=== PATIENT | female | born 1960 | race Caucasian/White ===

== ENCOUNTER 2018-03-21 18:17 | Outpatient (REF) | payer OTHER, SELFPAY ==
[2018-03-21 22:26] LABS: TSH (W/Ref FT4) 3.84 uIU/mL (0.358-3.74)
[2018-03-21 22:54] LABS: FREE T4 1.17 ng/dL (0.76-1.46)
== END 2018-03-21 18:37 ==
LOC: NCHCN 18:17
PROVIDERS: PCP Nurse Practitioner; Visit Provider Nurse Practitioner
DX: E03.9 Hypothyroidism, unspecified (principal)
CPT/HCPCS: 84439; 84443

== ENCOUNTER 2018-03-29 01:06 | Outpatient (CLI) | payer OTHER, SELFPAY ==
--- NOTE | 2018-03-29 14:13 | DI.RAD_ITS ---
SYMPTOMS/DIAGNOSIS: HIP PAIN, M25.551 LUMBAR SPINE: The spine is partially obscured due to a large quantity of stool seen throughout the colon. There is mild narrowing of the L2-3 disc and small endplate osteophytes, which project anteriorly. There is also mild narrowing of the L4-5 disc. Facet degenerative changes are seen, which are mild, in the lower lumbar spine. A sacral spinal stimulator is seen. IMPRESSION: Mild to moderate degenerative disc changes at L2-3 and L4-5. Large quantity of stool is noted. PELVIS AND LEFT HIP: A sacral stimulator device is seen on the right side. The hip joint spaces are well maintained. There are no visible degenerative changes. There is a large quantity of stool. IMPRESSION: Negative pelvis and right hip.
== END 2018-03-29 01:26 ==
PROVIDERS: PCP Nurse Practitioner; Visit Provider Nurse Practitioner
DX: M25.552 Pain in left hip (principal); M51.36 Other intervertebral disc degeneration, lumbar region; K59.00 Constipation, unspecified; Z96.9 Presence of functional implant, unspecified
CPT/HCPCS: 72110; 73502

== ENCOUNTER 2018-06-09 07:49 | Outpatient (CLI) | payer OTHER, SELFPAY ==
[2018-06-09 11:47] LABS: Cholesterol 126 mg/dL (50-200); Glucose 89 mg/dL (70-100); HDL Cholesterol 39 mg/dL (40-60); LDL CHOLESTEROL 48 mg/dL (<100); Triglyceride 141 mg/dL (30-150)
== END 2018-06-09 08:09 ==
PROVIDERS: PCP Nurse Practitioner; Visit Provider Nurse Practitioner
DX: Z00.00 Encounter for general adult medical examination without abnormal findings (principal); Z13.220 Encounter for screening for lipoid disorders; Z13.1 Encounter for screening for diabetes mellitus
CPT/HCPCS: 36415; 80061; 82947; 83721

== ENCOUNTER 2018-06-14 00:24 | Outpatient (CLI) | payer OTHER, SELFPAY ==
--- NOTE | 2018-06-14 13:00 | DI.US_ITS ---
SYMPTOMS/DIAGNOSIS: RIGHT GROIN PAIN, R10.31, RIGHT LOWER QUADRANT PAIN X 1 MO, TUGGING FEELING AT NIGHT WHEN LYING DOWN, S/P APPENDECTOMY, S/P MYOMECTOMY, H/O BREAST CA PELVIC ULTRASOUND: Transabdominal and transvaginal examination was performed. The uterus measures 6 cm long x 2.2 cm AP x 3.4 cm transverse. The endometrial stripe is within normal limits at 0.1 cm. No myometrial mass is present. The ovaries are visualized. The right ovary measures 2.1 x 1.1 x 1.3 cm, the left ovary measures 1.7 x 1.1 x 1.0 cm. The ovaries are unremarkable. No free pelvic fluid or hydronephrosis is identified. IMPRESSION: Normal pelvic ultrasound.
== END 2018-06-14 00:44 ==
PROVIDERS: PCP Nurse Practitioner; Visit Provider Nurse Practitioner
DX: R10.31 Right lower quadrant pain (principal); Z85.3 Personal history of malignant neoplasm of breast; Z90.89 Acquired absence of other organs
CPT/HCPCS: 76830; 76856

== ENCOUNTER 2018-07-17 11:34 | Emergency (ER) | payer OTHER, SELFPAY ==
[2018-07-17 11:48] VITALS: BP 103/64; PULSE 90; RESP 14; TEMP 36.7; O2SAT 100
--- NOTE | 2018-07-17 11:54 | DI.RAD_ITS ---
SYMPTOMS/DIAGNOSIS: FALL WHILE SKIING, RT HIP PAIN, AMBULATES WELL RIGHT HIP AND PELVIS: Five views were obtained. No fracture is seen. Note is made of sacral spinal stimulator in place.
--- NOTE | 2018-07-17 11:56 | ED.GENADUL_ITS ---
Discharge Plan Disposition Patient Disposition: HOME Condition: Good Discharge Details Chief Complaint: Orthopedic Clinical Impression: Acute pain of right hip Primary Care Provider: Taylor Warren ED Provider: Thomas Olguin Home Meds and New Rx's Prescriptions: New lidocaine [Lidoderm] 1 PATCH patch 1 patch Topical Q24H Qty: 4 RF: 0 No Action trazodone 100 MG tablet 100 mg PO HS RF: 0 levothyroxine [Synthroid] 125 MCG tablet 125 mcg PO DAILY RF: 0 buspirone 15 MG tablet 30 mg PO BID RF: 0 duloxetine [Cymbalta] 60 MG capsule,delayed release(DR/EC) 120 mg PO DAILY RF: 0 anastrozole 1 mg Tablet 1 mg PO DAILY RF: 0 Discharge Instructions Instructions: Hip Pain (ED) Additional Instructions: The x-rays show no evidence of fracture, and I suspect you have suffered a contusion and sprain to your hip. Please continue to take Tylenol, ibuprofen, and the Lidoderm patches as needed for pain. Please use ice every 2-3 hours. If you notice any worsening of your symptoms, or any new symptoms such as vomiting, diarrhea, fever, chills, shortness of breath, chest pain, numbness, weakness, or fainting , please return immediately to the emergency department for reevaluation. Please follow up with your primary care provider as soon as possible for reassessment and reevaluation. As always, it was a pleasure participating in your medical care today. Referrals: Taylor Warren [Primary Care Provider] - Medical Decision Making This is a pleasant 57-year-old female with a past medical history of breast cancer who is not on any blood thinners who presents today for evaluation of right hip pain. She fell while skiing yesterday and landed on her right hip. She skied throughout the rest of the day without any pain or complication. She did notice today that her right hip was slightly sore when she was climbing up and down stairs, but had no significant pain with walking ambulation or movement otherwise. She has taken naproxen this is improved her symptoms. She denies any numbness or tingling. Physical exam shows no concerning signs for fracture or significant abnormality. Questionable mild contusion or ligamentous sprain. Patient is requesting x-ray and will get an x-ray of the hips. We will Place Lidoderm patch. I feel the patient can most likely be discharged home with close follow-up with her PCP if x-ray imaging is benign. 1:17 PM Patient's x-ray results have returned with no evidence of acute fracture. Patient is ambulate in well and pain is well controlled. Patient will be discharged home with close follow-up with PCP per I have extensively reviewed the treatment plan and discharge instructions with the patient and their family. I have addressed all patient concerns at this time. The patient and family was made aware of what symptoms to monitor for that would warrant a return to the emergency department. Discussed the plan with the patient and family, they demonstrate verbal understanding and agreement with our assessment and plan at this time. CLINICAL HISTORY: 57 years old, female; Pain; Hip pain; Right hip; Patient HX: Neurostimulator placed years ago. ; Additional info: Fall skiing yesterday, pain right hip, ambulates well. TECHNIQUE: Imaging protocol: XR Right hip with pelvis when performed, 2 or 3 views COMPARISON: CR XR hip RT complete AP pelvis 03/29/2018 2:24 PM FINDINGS: Bones/joints: Normal. No acute fracture. There is no evidence of malalignment or dislocation. Soft tissues: Neurostimulator overlies the right iliac crest IMPRESSION: No acute findings. Dictated and Authenticated by: Barber Haney MD. HPI General Date/Time Provider Initiated Documentation: 07/17/18 11:44 . HPI Narrative: This is a pleasant 57-year-old female with a past medical history of breast cancer, who presents today for evaluation of right hip pain. The patient was skiing yesterday and fell and landed on her right hip. She had no loss of consciousness and denies any other significant trauma. She got up and Skiing for the rest of the day with no significant complication or pain however today she noticed a mild soreness in her right hip today. Pain was worse with walking up or down stairs, but not painful with just regular ambulation or movement. She denies any numbness or tingling. No radiation of the pain to the knee, pelvis or abdomen. She denies any other complaints. She has taken naproxen this is slightly improved her symptoms. She denies any other modifying factors. She denies any previous orthopedic injuries. Related Data Home Medications Medication Instructions Recorded Confirmed buspirone 30 mg PO BID 09/24/13 07/17/18 duloxetine [Cymbalta] 120 mg PO DAILY 09/24/13 07/17/18 levothyroxine [Synthroid] 125 mcg PO DAILY 09/24/13 07/17/18 trazodone 100 mg PO HS 09/24/13 07/17/18 anastrozole 1 mg PO DAILY 07/17/18 07/17/18 lidocaine [Lidoderm] 1 patch TOPICAL Q24H #4 patch 07/17/18 Previous Rx's Medication Instructions Recorded lidocaine [Lidoderm] 1 patch TOPICAL Q24H #4 patch 07/17/18 Allergies Allergy/AdvReac Type Severity Reaction Status Date / Time azithromycin [From Zithromax] Allergy Mild Skin Rash Unverified 07/17/18 12:37 cephalexin monohydrate Allergy Mild Skin Rash Unverified 07/17/18 12:37 [From Keflex] Review of Systems Review of Systems All systems reviewed & are unremarkable except as noted in HPI and below PFSH Social History Smoking/Tobacco Use Status: Former Tobacco Use Drug use: Never Do you feel safe at home: Yes Do you feel safe in your relationship?: Yes Exam Narrative Exam Narrative: 1.Const: Well-nourished, Well-developed, appearing stated age 2.Eyes: PERRL, no conjunctival injection, and symmetrical lids. 3.ENT: Atraumatic external nose and ears. Moist MM. Neck: Symmetric, trachea midline, No thyromegaly. 4.CVS: +S1/S2, No murmurs or gallops. Peripheral pulses 2+ and equal in all extremities. Brisk capillary refill in all extremities. 5.RESP: Unlabored respiratory effort. Clear to auscultation bilaterally. No wheezes rales or rhonchi 6.GI: Soft, Nontender/Nondistended, No hepatosplenomegaly. No guarding or rebound. 7.MSK: Normocephalic/Atraumatic, Extremities w/o deformity or ttp No cyanosis or clubbing, Normal movement of all extremities. Movements of the hip in all directions elicits no significant pain with internal or external rotation as well as flexion extension abduction and abduction. No crepitus. Minimal tenderness on palpation of the greater trochanter. No tenderness of the pubic symphysis. Pelvis is stable to lateral and posterior compression. No signs of other significant abnormality. No evidence of bruising or significant trauma. 8.Skin: Warm, Dry. No rashes or lesions. 9.Neuro: area safety manager II-XII grossly intact. Sensation grossly intact, no focal neurologic deficits. 10.Psych: (AAO) x3. Appropriate mood and affect
[2018-07-17] MEDS: Lidocaine 5% Patch 1 PATCH TP (12:00)
--- NOTE | 2018-07-17 13:11 | DI.VRAD_ITS ---
EXAM: XR Right Hip with Pelvis when Performed, 2 or 3 Views EXAM DATE/TIME: 07/17/2018 11:55 AM CLINICAL HISTORY: 57 years old, female; Pain; Hip pain; Right hip; Patient HX: Neurostimulator placed years ago. ; Additional info: Fall skiing yesterday, pain right hip, ambulates well. TECHNIQUE: Imaging protocol: XR Right hip with pelvis when performed, 2 or 3 views COMPARISON: CR XR hip RT complete AP pelvis 03/29/2018 2:24 PM FINDINGS: Bones/joints: Normal. No acute fracture. There is no evidence of malalignment or dislocation. Soft tissues: Neurostimulator overlies the right iliac crest IMPRESSION: No acute findings. Dictated and Authenticated by: Barber Haney MD. Ordering:OMAR Guzman MD
== END 2018-07-17 13:24 | disposition home or self-care (01) ==
PROVIDERS: Emergency Provider Student in an Organized Health Care Education/Training Program; PCP Family Medicine
DX: M25.551 Pain in right hip (principal)
CPT/HCPCS: 99283; 73502

== ENCOUNTER 2018-08-25 12:17 | Outpatient (REF) | payer OTHER, SELFPAY ==
[2018-08-25 22:27] LABS: CREATININE 0.82 mg/dL (0.55-1.02)
== END 2018-08-25 12:37 ==
LOC: NCHCN 12:17
PROVIDERS: PCP Family Medicine; Visit Provider Family Medicine
DX: R19.00 Intra-abdominal and pelvic swelling, mass and lump, unspecified site (principal)
CPT/HCPCS: 82565

== ENCOUNTER 2018-09-01 01:33 | Outpatient (CLI) | payer OTHER, SELFPAY ==
[2018-09-01] MEDS: Omnipaque 350 MG/ML 100 ML BTL IJ (10:43)
--- NOTE | 2018-09-01 10:44 | DI.CT_ITS ---
SYMPTOMS/DIAGNOSIS: ABD MASS, R19.[address]: CT examination of the abdomen and pelvis was performed with a bolus infusion of 100 cc's of Omnipaque 350 and ingestion of dilute barium. Note is made of a sacral neural pacer wire with subcutaneous placement of the pacer. Images obtained through the lung bases are unremarkable. Liver, spleen and pancreas appear normal. Gallbladder and bile ducts are CT normal. Adrenals and kidneys are unremarkable. No evidence of urinary tract obstruction or calcification. Abdominal aorta is of normal diameter and major branches are unremarkable in appearance. There is a tiny fat containing ventral hernia in the left lower quadrant measuring up to about 2 cm in diameter. No additional abdominal wall hernia seen. No abdominal wall mass identified. No abdominal or pelvic adenopathy seen. Appendix is not specifically visualized but there is no evidence of appendicitis or diverticulitis. No evidence of bowel obstruction. Note is made of dilatation and probable wall thickening of the duodenum and perhaps portions of the proximal jejunum. Question mild gastric antral wall thickening noted as well. CONCLUSION: 1. Question antral gastritis and duodenitis vs enteritis. Please correlate clinically and endoscopy may be obtained if clinically appropriate. 2. 2 cm in diameter fat containing left lower quadrant ventral hernia seen at the lateral border of the rectus muscle. No bowel involvement.
== END 2018-09-01 01:53 ==
PROVIDERS: PCP Family Medicine; Visit Provider Family Medicine
DX: R19.00 Intra-abdominal and pelvic swelling, mass and lump, unspecified site (principal); K43.9 Ventral hernia without obstruction or gangrene; K59.8 Other specified functional intestinal disorders
CPT/HCPCS: 74177; J3490

== ENCOUNTER 2019-01-23 16:18 | Outpatient (CLI) | payer OTHER, SELFPAY ==
--- NOTE | 2019-01-23 16:18 | DI.RAD_ITS ---
EXAM: XR SACRUM COCCYX INDICATION: COCCYDYNIA M53.3 HX BREAST CANCER. COMPARISON: XR FOOT RT COMPLETE from 01/23/2019 TECHNIQUE: 2D digital imaging was performed. FINDINGS: Three views were obtained. There is apparent this sacral is simulator located posteriorly the tip wh ich lies at the 3rd to 4th sacral segment on right. Mild degenerative changes of the SI joints noted . No other significant bony seen. Three views of the foot were obtained and show slight degenerative changes of joints of the midfoot a nd IP joints. note is made of a prominent os tibialis externum. This appears partially fused to the navicular, correlation requested regarding the site of the patient's foot pain. IMPRESSION:
== END 2019-01-23 16:38 ==
PROVIDERS: PCP Family Medicine; Visit Provider Family Medicine
DX: M53.3 Sacrococcygeal disorders, not elsewhere classified (principal); M19.071 Primary osteoarthritis, right ankle and foot; Z85.3 Personal history of malignant neoplasm of breast
CPT/HCPCS: 72220; 73630

== ENCOUNTER 2019-03-28 10:16 | Outpatient (REF) | payer OTHER, SELFPAY ==
[2019-03-28 20:00] LABS: TSH (W/Ref FT4) 5.72 uIU/mL (0.36-3.74)
[2019-03-28 20:17] LABS: FREE T4 1.12 ng/dL (0.76-1.46)
== END 2019-03-28 10:36 ==
LOC: NCHCN 10:16
PROVIDERS: PCP Family Medicine; Visit Provider Family Medicine
DX: E03.9 Hypothyroidism, unspecified (principal)
CPT/HCPCS: 84439; 84443

== ENCOUNTER 2019-05-11 13:14 | Outpatient (REF) | payer OTHER, SELFPAY ==
--- NOTE | 2019-05-11 11:30 | PAPFT_PTH ---
PATIENT: Nisreen Tafoya LOC: [facility]#:[id number] AGE/SX: 58/F ROOM: RE05/11/[address]: Kath Eden : 1960 BED: DIS: 05/11/2019 SPEC #: [id number] RECD: 05/11/19 18:14 STATUS: SIMIN REQ #: [id number] LÓPEZ: 05/11/19 11:[address]: Kath Eden DEPT: [facility] Cytology RECD BY: Sunshine Romero ENTERED: 05/11/19 18:15 SP TYPE: PAPFT OTHR DR: Taylor Warren Tissues: 1 - CX/ENDOCX FOR PAP SMEARS Procedures: PAP THIN PREP/UVM Screening HPV DNA PROBE Comments: [id number]
== END 2019-05-11 13:34 ==
LOC: NCHCN 13:14
PROVIDERS: PCP Family Medicine; Visit Provider Family Medicine
DX: Z00.00 Encounter for general adult medical examination without abnormal findings (principal); Z12.4 Encounter for screening for malignant neoplasm of cervix; Z11.51 Encounter for screening for human papillomavirus (HPV)
CPT/HCPCS: 88142; 87624

== ENCOUNTER 2019-07-21 12:49 | Outpatient (REF) | payer OTHER, SELFPAY | END 2019-07-21 13:09 | LOC: NCHCN 12:49 | PROVIDERS: PCP Family Medicine; Visit Provider Family Medicine | DX: E03.9 Hypothyroidism, unspecified (principal) | CPT/HCPCS: 84443 ==

== ENCOUNTER 2019-12-27 01:17 | Outpatient (CLI) | payer OTHER, SELFPAY ==
--- NOTE | 2019-12-27 | DI.US_ITS ---
EXAM: US SOFT TISSUE EXTREMITY CLINICAL HISTORY: PAIN BETWEEN 2ND,3RD METATARSAL/PROX PHALANGES, ? MORTONS NEUROMA. TECHNIQUE: Ultrasound was performed using standard protocol. COMPARISON: No exams were available for comparison FINDINGS: Sonographic assessment utilizing grayscale and color Doppler imaging was performed and targeted to th e area of clinical concern. No foreign body, mass or fluid collection was visualized sonographically. IMPRESSION: Negative ultrasound of the right foot. No visible mass. DATA REPOSITORY:
== END 2019-12-27 01:37 ==
PROVIDERS: PCP Family Medicine; Visit Provider Family Medicine
DX: M79.671 Pain in right foot (principal)
CPT/HCPCS: 76881

== ENCOUNTER 2020-05-02 18:28 | Outpatient (REF) | payer OTHER, SELFPAY ==
[2020-05-02 19:09] LABS: TSH (W/Ref FT4) 0.42 uIU/mL (0.36-3.74)
== END 2020-05-02 18:48 ==
LOC: NCHCN 18:28
PROVIDERS: PCP Family Medicine; Visit Provider Family Medicine
DX: E03.9 Hypothyroidism, unspecified (principal)
CPT/HCPCS: 84443

== ENCOUNTER 2020-10-30 14:51 | Outpatient (CLI) | payer OTHER, SELFPAY ==
--- NOTE | 2020-10-30 | DI.US_ITS ---
Exam(s) US LOWER EXTREMITY VENOUS RT EXAM: US LOWER EXTREMITY VENOUS RT CLINICAL HISTORY: RT LEG PAIN, ? DVT, m79.604,PERSONAL H/O BREAST CA. TECHNIQUE: Lower extremity venous ultrasound performed using grayscale, color-flow, and spectral Do ppler analysis. COMPARISON: No exams were available for comparison FINDINGS: The common femoral, femoral and popliteal veins demonstrate normal compressibility, augmentation, and color Doppler. The posterior tibial veins are patent. No saphenous vein thrombosis or other superfi cial venous thrombosis is seen. No hematoma or Oneill's cyst is seen. No abnormality is seen in the posterolateral calf area in the area of patient pain. IMPRESSION: Negative lower extremity ultrasound. No evidence of DVT. DATA REPOSITORY:
--- NOTE | 2020-10-30 | DI.RAD_ITS ---
Exam(s) XR TIB/FIB RT EXAM: XR TIB/FIB RT CLINICAL HISTORY: RT LEG PAIN, ?. TECHNIQUE: 2D digital imaging was performed. COMPARISON: No exams were available for comparison FINDINGS: BONES: No acute fracture is present. No bony destructive lesion is seen. Visualized portion of knee a nd ankle joints are unremarkable. SOFT TISSUE: Normal. No foreign body or gas collection. IMPRESSION: Unremarkable radiographs of the right tibia and fibula. DATA REPOSITORY: RADIATION DOSE DELIVERED:
== END 2020-10-30 15:11 ==
PROVIDERS: PCP Family Medicine; Visit Provider Family Medicine
DX: M79.604 Pain in right leg (principal); Z85.3 Personal history of malignant neoplasm of breast; Z90.13 Acquired absence of bilateral breasts and nipples
CPT/HCPCS: 73590; 93971

== ENCOUNTER 2021-04-17 12:34 | Outpatient (CLI) | payer OTHER, SELFPAY ==
--- NOTE | 2021-04-17 | DI.RAD_ITS ---
Exam(s) XR HIP RT COMPLETE AP PELVIS EXAM: XR HIP RT COMPLETE AP PELVIS CLINICAL HISTORY: RT HIP PAIN, M25.551. TECHNIQUE: 2D digital imaging was performed. COMPARISON: CR XR hip RT complete AP pelvis from 07/17/2018 FINDINGS: Right trans sacral stimulator again noted. No hip fractures nor pelvic fractures. No degenerative c hanges. Additional lateral view of the right hip appears unremarkable. Sacroiliac joints unremarkab le. IMPRESSION: No significant radiographic findings nor significant change compared to 07/17/2018 DATA REPOSITORY: RADIATION DOSE DELIVERED:
== END 2021-04-17 12:54 ==
PROVIDERS: PCP Family Medicine; Visit Provider Family Medicine
DX: M25.551 Pain in right hip (principal)
CPT/HCPCS: 73502

== ENCOUNTER 2021-05-05 16:13 | Outpatient (REF) | payer OTHER, SELFPAY ==
[2021-05-05 15:19] LABS: Hemoglobin A1C 5.2 % (<5.7)
[2021-05-05 15:27] LABS: Anion Gap 9.2 mmol/L (3-11); BUN 22 mg/dL (7-18); CO2 27.8 mmol/L (21.0-32.0); CREATININE 0.9 mg/dL (0.55-1.02); Calcium 9.6 mg/dL (8.5-10.1); Chloride 104 mmol/L (98-107); Glucose 88 mg/dL (74-106); Potassium 4.6 mmol/L (3.5-5.1); Sodium 141 mmol/L (136-145); TSH (W/Ref FT4) 0.36 uIU/mL (0.36-3.74)
== END 2021-05-05 16:14 | disposition home or self-care (01) ==
LOC: NCHCN 16:13
PROVIDERS: PCP Family Medicine; Visit Provider Family Medicine
DX: E03.9 Hypothyroidism, unspecified (principal); Z00.00 Encounter for general adult medical examination without abnormal findings; Z13.1 Encounter for screening for diabetes mellitus; Z79.1 Long term (current) use of non-steroidal anti-inflammatories (NSAID)
CPT/HCPCS: 80048; 83036; 84443

== ENCOUNTER 2021-10-23 19:04 | Outpatient (REF) | payer OTHER, SELFPAY | END 2021-10-23 19:05 | disposition home or self-care (01) | LOC: LBN 19:04 | PROVIDERS: PCP Family Medicine; Visit Provider Obstetrics & Gynecology | DX: N89.8 Other specified noninflammatory disorders of vagina; N94.89 Other specified conditions associated with female genital organs and menstrual cycle | CPT/HCPCS: 87480; 87510; 87660 ==

== ENCOUNTER 2022-01-02 23:17 | Emergency (ER) | payer OTHER, SELFPAY ==
--- NOTE | 2022-01-02 23:15 | DI.RAD_ITS ---
Exam(s) XR ANKLE LT COMPLETE EXAM: XR ANKLE LT COMPLETE CLINICAL HISTORY: Lateral pain and swelling. TECHNIQUE: 2D digital imaging was performed. COMPARISON: CR RIGHT ANKLE COMPLETE from 10/30/2013 FINDINGS: 3 views No evidence of fracture or widening of the mortise. Talar dome unremarkable. Fifth metatarsal base unremarkable. Bone density age-appropriate. No osseous lesions. IMPRESSION: No significant osseous findings. DATA REPOSITORY: RADIATION DOSE DELIVERED:
[2022-01-02 23:23] VITALS: BP 114/72; PULSE 75; RESP 16; TEMP 36.3; O2SAT 100
--- NOTE | 2022-01-02 23:30 | ED.GENADUL_ITS ---
Discharge Plan Disposition Patient Disposition: HOME Condition: Improving Discharge Details Clinical Impression: Left ankle sprain Primary Care Provider: Taylor Warren ED Provider: Timmy Morris Home Meds and New Rx's Prescriptions: Continued pantoprazole 40 mg tablet,delayed release (DR/EC) 40 mg PO DAILY citalopram 20 mg tablet 20 mg PO DAILY baclofen 10 mg tablet 10 mg PO DAILY cholecalciferol (vitamin D3) 50 mcg (2,000 unit) capsule 50 mcg PO DAILY calcium carbonate 500 mg calcium (1,250 mg) tablet 1,000 mg PO DAILY vitamin B complex Tablet 2 tab PO DAILY trazodone 100 MG tablet 100 mg PO HS buspirone 15 MG tablet 30 mg PO BID levothyroxine [Synthroid] 125 mcg tablet 150 mcg PO DAILY Discharge Instructions Instructions: Ankle Sprain (ED) Additional Instructions: May begin crutch walking with walking boot and then wean from the crutches over 7 to 10 days time. Remove walking boot while at home and at rest. Apply ice and elevate to reduce discomfort. You may have progressive bruising. Ibuprofen as needed for pain with the provided hydrocodone/Tylenol as needed for severe or breakthrough pain. Medical Decision Making 61-year-old female who inverted her left foot at home without other injury. Developed pain and swelling, worse with weightbearing. The left lateral malleolus and foot are tender, edematous. Must rule out underlying fracture and patient referred for XRay: No acute fracture seen. Disucsed with her home management and progressive resumption of weight bearing. She is stable and appropriate for outpatient management. Patient consented for the use of narcotic if needed given her worry of developing pain. She will wean from crutches and walking boot as able to over 1 to 2 weeks. She is stable and appropriate for outpatient management. HPI General Mode of arrival: ambulatory . Date/Time Provider Initiated Documentation: 01/02/22 23:18 . Limitations to Documentation: no limitations . Information obtained by: patient . History of Present Illness 61 year old F presents to the emergency department with the chief complaint of Left ankle pain after fall at home, described as moderate, Quality is described as dull and constant, and is localized to the left and lower extremity. Patient reports no radiation. Patient started experiencing this hour(s) and it has been constant. Rest improves symptom(s), Movement worsens symptoms . Patient notes denies headaches and syncope. Patient did receive the following treatments prior to arrival, none Related Data Home Medications Medication Instructions Recorded Confirmed trazodone 100 mg tablet 100 mg PO HS 09/24/13 01/02/22 baclofen 10 mg tablet 10 mg PO DAILY 10/23/21 01/02/22 buspirone 15 mg tablet 30 mg PO BID 10/23/21 01/02/22 calcium carbonate 500 mg calcium 1,000 mg PO DAILY 10/23/21 01/02/22 (1,250 mg) tablet cholecalciferol (vitamin D3) 50 50 mcg PO DAILY 10/23/21 01/02/22 mcg (2,000 unit) capsule citalopram 20 mg tablet 20 mg PO DAILY 10/23/21 01/02/22 levothyroxine 125 mcg tablet 150 mcg PO DAILY 10/23/21 01/02/22 (Synthroid) pantoprazole 40 mg tablet,delayed 40 mg PO DAILY 10/23/21 01/02/22 release vitamin B complex 2 tab PO DAILY 10/23/21 01/02/22 Allergies Allergy/AdvReac Type Severity Reaction Status Date / Time azithromycin [From Zithromax] Allergy Mild Skin Rash Unverified 01/02/22 23:29 cephalexin monohydrate Allergy Mild Skin Rash Unverified 01/02/22 23:29 [From Keflex] General Stated Complaint: Orthopedic MATTY: 4 Review of Systems Narrative: No other injury. Otherwise well. 4 systems were reviewed [facility] All Active Problems (Updated 01/03/22 @ 00:07 by Timmy Morris MD) Left ankle sprain (Acute) Vaginal irritation (Acute) Asthma (Chronic) Osteopenia (Acute) Depression (Chronic) Hypothyroid (Chronic) Medical History Breast cancer Condyloma Glaucoma Uterine fibroid Surgical History H/O myomectomy Hx of appendectomy Hx of bilateral mastectomy Family History Other Breast cancer Diabetes Heart disease Osteoporosis Thyroid disease Social History Smoking/Tobacco Use Status: Former Tobacco Use Smoking risk assessment performed?: Yes Alcohol Intake: current Alcohol Intake frequency: a few times a month Drug use: Never Substance use type: does not use Household members: spouse Number of Children: 1 Education Level: college current occupation: RN Do you think of yourself as: straight/heterosexual Current gender identity: female What is your relationship status?: Panel score (0-1 are the most socially isolated patients): 1 Duration: 30-45 minutes/day Frequency: 3-4 times per week Patricia/Adventism: Scientologist Do you feel safe at home: Yes Do you feel safe in your relationship?: Yes Female Reproductive History Menstrual Menopause type: natural History History 1 Para 1 Hx # Term Pregnancies Multiple births Hx # Pregnancies Ectopic pregnancies AB induced Hx Number of Living Children AB spontaneous Past Pregnancies Del. Date GA/Weeks # Preg Succ Route Wgt Sex Labor Lgth Anesth esia Location Prov Complic Unknown 37 No Yes vaginal Female Delivery Date: Last Updated by: Lisa Azul Baby born in [place] 09/1993 Exam Narrative Exam Narrative: GEN: awake, alert, oriented 3. Pleasant, well groomed, interactive. HEAD: Normocephalic, atraumatic ENT: Mucous membranes moist,External ear exam unremarkable EYES: PERRL, EOMI NECK: Full ROM, no TASHIA, no menigismus CHEST/RESP: Nontender, no respiratory distress EXT: Full ROM, left lateral malleolus and foot edema and tenderness to palpation. Sensation intact throughout. Normal capillary refill Neuro: Grossly normal neurologic exam, conversant, interactive. Psych: Speech fluent, thoughts congruent, affect normal Course Vital Signs Vital signs: Vital Signs Temperature 36.3 C L 01/02/22 23:23 Pulse 75 01/02/22 23:23 Respiratory Rate 16 01/02/22 23:23 Blood Pressure 114/72 01/02/22 23:23 Pulse Oximetry 100 01/02/22 23:23 Temperature 36.3 C L 01/02/22 23:23 Temperature Source Temporal Artery Scan 01/02/22 23:23 Pulse 75 01/02/22 23:23 Respiratory Rate 16 01/02/22 23:23 Respiratory Effort Non-Labored 01/02/22 23:26 Blood Pressure 114/72 01/02/22 23:23 Blood Pressure Position Sitting 01/02/22 23:23 Pulse Oximetry 100 09/16/22 23:23 Oxygen Delivery Method Room Air 01/02/22 23:23 Oxygen Flow Rate 0 01/02/22 23:23 Pain Level 7 01/02/22 23:23
[2022-01-02] MEDS: Ibuprofen 600 MG TAB PO (23:42)
--- NOTE | 2022-01-03 00:41 | DI.VRAD_ITS ---
PROCEDURE INFORMATION: Exam: XR Left Ankle Exam date and time: 01/02/2022 11:45 PM Age: 61 years old Clinical indication: Injury or trauma; Sprain or strain; Left; Injury date: 01/02/22; Injury details: Fall, lateral ankle pain TECHNIQUE: Imaging protocol: Radiologic exam of the Left ankle. Views: 3 or more views. COMPARISON: US SOFT TISSUE EXTREMITY 12/27/2019 7:40 AM FINDINGS: Bones/joints: Normal. Soft tissues: Normal. IMPRESSION: No acute findings. Dictated and Authenticated by: Farrukh Kendall MD. Ordering:BRY Warner MD
== END 2022-01-03 01:01 | disposition home or self-care (01) ==
LOC: ER 01-03 00:37
PROVIDERS: Emergency Provider Emergency Medicine; PCP Family Medicine
DX: S93.402A Sprain of unspecified ligament of left ankle, initial encounter (principal); Z87.891 Personal history of nicotine dependence; W19.XXXA Unspecified fall, initial encounter; X50.1XXA Overexertion from prolonged static or awkward postures, initial encounter; Y92.009 Unspecified place in unspecified non-institutional (private) residence as the place of occurrence of the external cause
CPT/HCPCS: 99283; 73610; 99284

== ENCOUNTER → 2022-01-22 14:55 | Outpatient (CLI) | payer OTHER, SELFPAY ==
--- NOTE | 2022-01-22 | DI.RAD_ITS ---
Exam(s) XR FOOT LT COMPLETE EXAM: XR FOOT LT COMPLETE CLINICAL HISTORY: LEFT FOOT PAIN M79.672, R/O STRESS FX TECHNIQUE: COMPARISON: No exams were available for comparison FINDINGS: Three views were obtained. No bony or soft tissue abnormality seen. The requisition raises the poss ibility of a stress fracture, if there is high clinical suspicion of stress fracture, additional eval uation bone scan could be considered. IMPRESSION: RADIATION DOSE DELIVERED: Total DLP
== END ==
PROVIDERS: PCP Family Medicine; Visit Provider Family Medicine
DX: M79.672 Pain in left foot (principal)
CPT/HCPCS: 73630

== ENCOUNTER 2022-06-17 16:58 | Outpatient (REF) | payer BC, SELFPAY ==
[2022-06-17 15:08] LABS: Anion Gap 7.9 mmol/L (3-11); BUN 22 mg/dL (7-18); CO2 30.1 mmol/L (21.0-32.0); CREATININE 0.9 mg/dL (0.55-1.02); Calcium 9.3 mg/dL (8.5-10.1); Calculated LDL 86 mg/dL (<100); Chloride 106 mmol/L (98-107); Cholesterol 166 mg/dL (<200); Estimated GFR 71.83 (mL/min/1.73m2); Glucose 93 mg/dL (74-106); HDL Cholesterol 54 mg/dL (40-60); Potassium 4.5 mmol/L (3.5-5.1); Sodium 144 mmol/L (136-145); TSH (W/Ref FT4) 2.13 uIU/mL (0.36-3.74); Triglyceride 133 mg/dL (<150)
[2022-06-18 15:23] LABS: Helicobacter pylori Ag, Feces Negative (Negative)
== END 2022-06-17 16:59 | disposition home or self-care (01) ==
LOC: NCHCN 16:58
PROVIDERS: PCP Family Medicine; Visit Provider Family Medicine
DX: R10.9 Unspecified abdominal pain (principal); K21.9 Gastro-esophageal reflux disease without esophagitis; E03.9 Hypothyroidism, unspecified; Z00.00 Encounter for general adult medical examination without abnormal findings
CPT/HCPCS: 80048; 80061; 87338; 84443

== ENCOUNTER 2023-06-21 18:04 | Outpatient (REF) | payer BC, SELFPAY ==
[2023-06-21 19:18] LABS: TSH (W/Ref FT4) 0.08 uIU/mL (0.36-3.74)
[2023-06-21 19:37] LABS: FREE T4 1.44 ng/dL (0.76-1.46)
== END 2023-06-21 18:05 | disposition home or self-care (01) ==
LOC: NCHCN 18:04
PROVIDERS: PCP Family Medicine; Visit Provider Family Medicine
DX: E03.9 Hypothyroidism, unspecified (principal)
CPT/HCPCS: 84439; 84443

== ENCOUNTER → 2023-06-24 02:49 | Outpatient (CLI) | payer BC, SELFPAY ==
--- NOTE | 2023-06-24 | DI.DEXA_ITS ---
Exam(s) XR DEXA BONE DENSITY W/WO SERGO EXAM: XR DEXA BONE DENSITY W/WO SERGO CLINICAL HISTORY: OSTEOPENIA, M85.88 TECHNIQUE: Routine DEXA evaluation of the lumbar spine, hip, or forearm. COMPARISON: No exams were available for comparison FINDINGS: Performed on a Hologic unit. Lateral image: No compression fracture evident. Lumbar Spine total T-score: -1.2 Hip total T-score:-1.5 Independent reading at the level of the femoral neck yields T-score of -2.0 Forearm total T-score: -1.0 IMPRESSION: Bone mineral density measures in the osteopenia range. Fracture risk is moderate. Note: Any spine fracture indicates 5x risk for subsequent spine fracture and 2x risk for subsequent h ip fracture. World Health Organization criteria for BMD interpretation classify patients: Normal...... T- Score at or above -1.0 Osteopenic... T- Score between -1.0 and -2.5 Osteoporosis... T-Score at or below -2.5
== END ==
PROVIDERS: PCP Family Medicine; Visit Provider Family Medicine
DX: Z13.820 Encounter for screening for osteoporosis (principal); M85.89 Other specified disorders of bone density and structure, multiple sites
CPT/HCPCS: 77080

== ENCOUNTER 2023-10-19 17:30 | Outpatient (REF) | payer MEDICARE, BC, SELFPAY ==
[2023-10-19 16:35] LABS: TSH (W/Ref FT4) 0.19 uIU/mL (0.36-3.74)
== END 2023-10-19 17:31 | disposition home or self-care (01) ==
LOC: NCHCN 17:30
PROVIDERS: PCP Family Medicine; Visit Provider Family Medicine
DX: E03.9 Hypothyroidism, unspecified (principal)
CPT/HCPCS: 84439; 84443

== ENCOUNTER → 2023-12-08 08:05 | Outpatient (BNVA) | payer MEDICARE, BC, SELFPAY | PROVIDERS: PCP Family Medicine; Referring Provider Family Medicine; Visit Provider Psychiatry & Neurology Neurology | DX: B02.29 Other postherpetic nervous system involvement (principal) | CPT/HCPCS: 99215 ==

== ENCOUNTER 2023-12-14 03:03 | Outpatient (CLI) | payer MEDICARE, BC, SELFPAY ==
[2023-12-14 15:51] LABS: TSH (W/Ref FT4) 0.24 uIU/mL (0.36-3.74)
== END 2023-12-14 03:04 | disposition home or self-care (01) ==
PROVIDERS: PCP Family Medicine; Visit Provider Family Medicine
DX: E03.9 Hypothyroidism, unspecified (principal)
CPT/HCPCS: 36415; 84439; 84443

== ENCOUNTER 2024-02-23 12:26 | Outpatient (REF) | payer MEDICARE, BC, SELFPAY ==
[2024-02-23 16:42] LABS: FREE T4 1.27 ng/dL (0.76-1.46); TSH 1.38 uIU/mL (0.36-3.74)
== END 2024-02-23 12:27 | disposition home or self-care (01) ==
LOC: NCHCN 12:26
PROVIDERS: PCP Family Medicine; Visit Provider Student in an Organized Health Care Education/Training Program
DX: E03.9 Hypothyroidism, unspecified (principal)
CPT/HCPCS: 84439; 84443

== ENCOUNTER 2024-02-25 00:50 | Outpatient (CLI) | payer MEDICARE, BC, SELFPAY ==
--- NOTE | 2024-02-25 | DI.RAD_ITS ---
Exam(s) XR FOOT RT COMPLETE EXAM: XR FOOT RT COMPLETE CLINICAL HISTORY: PAIN RT FIRST MTP,DEGENERATIVE CHANGES,EVOLVING HALUX VALGUS,. TECHNIQUE: 2D digital imaging was performed of the right foot. Three images were obtained. AP, obl ique and lateral views were obtained. COMPARISON: CR XR FOOT RT COMPLETE from 01/23/2019 FINDINGS: BONES: No acute fracture is present. No bony destructive lesion is seen. There is a bipartite medial sesamoid at the head of the 1st metatarsal bone. JOINTS: No dislocation present. The 1st MTP joint is well maintained and normally aligned. 1st MTP a ngle is less than 15 degrees. SOFT TISSUE: Normal. IMPRESSION: Unremarkable radiographs of the right foot. No evidence of a hallux valgus deformity. DATA REPOSITORY: RADIATION DOSE DELIVERED:
== END 2024-02-25 01:10 ==
LOC: DI 00:50
PROVIDERS: PCP Family Medicine; Visit Provider Student in an Organized Health Care Education/Training Program
DX: M79.671 Pain in right foot (principal)
CPT/HCPCS: 73630

== ENCOUNTER → 2024-04-06 07:57 | Outpatient (BNVA) | payer MEDICARE, BC, SELFPAY | PROVIDERS: PCP Family Medicine; Referring Provider Family Medicine; Visit Provider Podiatrist | DX: S93.524A Sprain of metatarsophalangeal joint of right lesser toe(s), initial encounter (principal); X58.XXXA Exposure to other specified factors, initial encounter; M77.41 Metatarsalgia, right foot; M77.51 Other enthesopathy of right foot and ankle; M79.671 Pain in right foot; M79.672 Pain in left foot | CPT/HCPCS: 29540; 99214 ==

== ENCOUNTER → 2024-05-11 08:09 | Outpatient (BNVA) | payer MEDICARE, OTHER, SELFPAY | PROVIDERS: PCP Family Medicine; Referring Provider Family Medicine; Visit Provider Podiatrist | DX: S93.524A Sprain of metatarsophalangeal joint of right lesser toe(s), initial encounter (principal); X58.XXXA Exposure to other specified factors, initial encounter; M77.41 Metatarsalgia, right foot; M77.51 Other enthesopathy of right foot and ankle; M79.671 Pain in right foot; M79.672 Pain in left foot | CPT/HCPCS: 99213; 73630 ==

== ENCOUNTER 2024-05-11 12:57 | Outpatient (CLI) | payer MEDICARE, OTHER, SELFPAY ==
--- NOTE | 2024-05-11 09:25 | DI.RAD_ITS ---
Exam(s) XR FOOT RT COMPLETE EXAM: XR FOOT RT COMPLETE CLINICAL HISTORY: Hx breast cancer. Now foot pain. mets?, sprain metatarsophalangeal joint. TECHNIQUE: 2D digital imaging was performed. COMPARISON: CR XR FOOT RT COMPLETE from 02/25/2024 FINDINGS: 3 views No evidence of fracture or diastasis of the Lisfranc joint. Bone density normal. No osseous lesions . No pes planus. No enthesophytes. The more medial of the 2 sesamoid bones subjacent to the great toe metatarsal head is again noted to be bipartite. There are no degenerative changes in the great toe metatarsophalangeal joint. No osse ous lesions. IMPRESSION: No fractures or bone lesions, given history. Bone density is normal. No radiographic change compare d to prior images of February 2024. DATA REPOSITORY: RADIATION DOSE DELIVERED:
== END 2024-05-11 13:17 ==
LOC: DI 13:02
PROVIDERS: PCP Family Medicine; Visit Provider Podiatrist
DX: S93.524D Sprain of metatarsophalangeal joint of right lesser toe(s), subsequent encounter (principal); X58.XXXD Exposure to other specified factors, subsequent encounter
CPT/HCPCS: 73630

== ENCOUNTER 2024-06-19 12:27 | Outpatient (REF) | payer MEDICARE, OTHER, SELFPAY ==
[2024-06-19 21:34] LABS: TSH (W/Ref FT4) 0.82 uIU/mL (0.36-3.74)
== END 2024-06-19 12:28 | disposition home or self-care (01) ==
LOC: NCHCN 12:27
PROVIDERS: PCP Family Medicine; Visit Provider Family Medicine
DX: E03.9 Hypothyroidism, unspecified (principal)
CPT/HCPCS: 84443

== ENCOUNTER 2025-01-08 17:29 | Outpatient (REF) | payer MEDICARE, OTHER, SELFPAY ==
[2025-01-08 21:36] LABS: HCT 38.8 % (36.0-46.0); HGB 12.9 g/dL (11.2-15.7); MCH 30.9 pg (27.0-33.0); MCHC 33.2 % (32.0-36.0); MCV 93 fL (80-95); MPV 11.0 fL (8.0-11.0); Platelet Count 226 10^3/uL (130-400); RBC 4.17 10^6/uL (3.93-5.22); RDW 14.0 % (11.7-14.6); RDW-SD 47.4 fL; WBC 5.11 10^3/uL (4.4-10.8)
[2025-01-08 22:05] LABS: TSH (W/Ref FT4) 29.45 uIU/mL (0.36-3.74)
== END 2025-01-08 17:30 | disposition home or self-care (01) ==
LOC: NCHCN 17:29
PROVIDERS: PCP Family Medicine; Visit Provider Family Medicine
DX: E03.9 Hypothyroidism, unspecified (principal); R42 Dizziness and giddiness
CPT/HCPCS: 85027; 84439; 84443

== ENCOUNTER 2025-03-01 02:08 | Outpatient (CLI) | payer MEDICARE, OTHER, SELFPAY ==
[2025-03-01 12:23] LABS: TSH (W/Ref FT4) 0.73 uIU/mL (0.55-4.78)
== END 2025-03-01 02:09 | disposition home or self-care (01) ==
LOC: LBO 02:08
PROVIDERS: PCP Family Medicine; Visit Provider Family Medicine
DX: E03.9 Hypothyroidism, unspecified (principal)
CPT/HCPCS: 36415; 84443

== ENCOUNTER → 2025-03-19 03:56 | Outpatient (CLI) | payer MEDICARE, OTHER, SELFPAY ==
--- NOTE | 2025-03-19 13:30 | DI.US_ITS ---
APPROVED REPORT EXAM: Comprehensive 2D, Doppler, and color-flow Echocardiogram Patient Location: Out-Patient Rod Tape Operator: Lamont Ruiz RDCS (AE) Indications: Postural dizziness Other Information Study Quality: Adequate Conclusion Normal left ventricular wall thickness and chamber size. Ejection fraction is 62%. Wall motion is normal Normal right ventricular size and function Both atria are normal in size There is no structural or hemodynamically significant valvular disease Normal estimated right ventricular systolic pressure 25 mmHg Wall motion Left Ventricle The left ventricle is normal size. Left ventricular systolic function is normal. The left ventricular ejection fraction is within the normal range. There is normal left ventricular wall thickness. There is normal LV segmental wall motion. There is no ventricular septal defect visualized. LVEF is 62%. Right Ventricle The right ventricle is normal size. The right ventricular systolic function is normal. Atria The left atrium size is normal. The right atrium size is normal. The interatrial septum is intact with no evidence for an atrial septal defect. Aortic Valve The aortic valve is trileaflet There is no aortic valvular stenosis. No aortic regurgitation is present. Mitral Valve The mitral valve is normal in structure. No evidence of mitral valve stenosis. Trace mitral regurgitation. Tricuspid Valve The tricuspid valve is normal in structure. There is no tricuspid valve stenosis. Mild tricuspid regurgitation. The RVSP is 25.4 mmHg. Pulmonic Valve The pulmonary valve is normal in structure. There is no pulmonic valvular stenosis. Moderate pulmonic regurgitation. Great Vessels The aortic root is normal in size. The ascending aorta is normal in size. Aortic arch is not well visualized. IVC is normal in size and collapses >50% with inspiration. Pericardium There is no pericardial effusion. 2D Dimensions IVSD d PLAX 0.79 cm F: 0.6-1.0 Ao Root d 2.46 cm F: 2.7 - 3.3 LVPW d PLAX 0.80 cm F: 0.6 - 1.0 Ao Asc Diam d 2.45 cm F: 2.3 - 3.1 LVID d PLAX 4.41 cm F: 3.8 - 5.2 LVDs 2.91 cm F: 2.2 - 3.5 LV EF Teichholz 63.2 % FS 34.08 % LV EDV (Teich) 88.2 mL LV ESV (Teich) 32.4 mL Stroke Vol Index (Teich) 34.00 M-Mode TAPSE 2.15 cm (M/F) >1.7 Auto EF LV EDV A4C 71.6 mL LV EDV A2C 88.0 mL LV EDV BP 79.0 mL LV ESV A4C 28.8 mL LV ESV A2C 31.1 mL LV ESV BP 30.3 mL LVEF(%) A4C 59.8 % LVEF(%) A2C 64.6 % LVEF(%) BP 61.7 % LV SV A4C 42.8 ml LV SV A2C 56.8 ml LV SV BP 48.7 ml LV CO A4C 2.6 L/min LV CO A2C 3.4 L/min LV CO BP 3.0 L/min HR A4C 61.02 BPM HR A2C 59.61 BPM LV EDV Index (BP) LA Volume LA Length A4C 4.2 cm LA Length A2C 3.9 cm LA Area A4C s 11.50 cm2 LA Area A2C s 10.05 cm2 LA Vol A4C A-L 27.02 mL LA Vol A2C A-L 22.23 mL LA Vol Biplane A-L 25.4 mL LA Vol/BSA A4C A-L LA Vol/BSA A2C A-L LA Vol/BSA BP A-L 15.5 mL/m2 LA Vol A4C MOD 24.5 mL LA Vol A2C MOD 21.3 mL LA Vol BP MOD 23.6 mL RA Volume RA Area A4C 8.3 cm2 RA ESV A4C (A-L) 15.7mL RA Vol/BSA A4C A-L RA Length A4C 3.8 cm RA ESV A4C (MOD) 15.7mL LV Diastology MV E' medial 0.095 (>0.07 m/s) MV E Vmax 0.66 (0.4-1.3 m/s) MV E/E' MED 6.95 (<14) MV A Vmax 0.70 (0.4-1.3 m/s) MV E' lateral 0.118 (>0.1 m/s) E/A Ratio 0.9 MV E/E' LAT 5.58 (<14) MV E' Average 0.106 m/s MV E/E'(average) 6.19 Aortic Valve AoV Vmax 1.21 m/s LVOT Vmax 0.93 m/s AoV Peak Grad 5.9 mmHg LVOT Peak Grad 3.5 mmHg AoV Area (Vmax) 2.13 cm2 LVOT VTI 0.205 m AoV VTI 0.292 m LVOT Mean Grad 1.8 mmHg AoV Mean Juan M. 0.85 m/s LVOT SV 56.72 mL AoV Mean Grad 3.3 mmHg LVOT Diam s 1.85 cm AoV Area (VTI) 1.95 cm2 AV Regurg Peak Gr. 5.88 mmHg Velocity Ratio 0.77 Mitral Valve MV DT 219 (160-240 msec) Pulmonary Valve PV Vmax 0.73 (0.5-1.5 m/s) RVOT Vmax 0.52 m/s PV Peak Grad 2.2 mmHg RVOT Peak Gr. 1.1 mmHg PV Mean Juan M 0.60 m/s RVOT VTI 0.140 m PV Mean Grad 1.5 mmHg RVOT Mean Gr. 0.7 mmHg Tricuspid Valve RA Pressure 3.00 mmHg TR Vmax 2.36 m/s TV S' 0.12 m/s TR Peak Grad 22.3 mmHg RVSP (TR) 25.4 mmHg
== END ==
LOC: DI 03:56
PROVIDERS: PCP Family Medicine; Visit Provider Family Medicine
DX: R55 Syncope and collapse (principal); R42 Dizziness and giddiness
CPT/HCPCS: 93306

== ENCOUNTER 2025-03-23 14:24 | Outpatient (RCR) | payer MEDICARE, OTHER, SELFPAY ==
--- NOTE | 2025-03-27 09:39 | W.HOLTRPT ---
Date of service: 03/27/25 Time of Service: 09:39 Holter Monitor Report Referring Provider:: Kath Eden Indications:: Dizziness Holter Monitor Note: This is a 48-hour Holter monitor. Rhythm throughout was sinus with an average heart rate of 71. Minimum was 48, maximum 105 There were 3 premature ventricular contractions There were 16 premature atrial contractions. There was no atrial fibrillation, no high-grade AV block, no pauses greater than 3 seconds. Multiple symptoms were reported all of which correlated to sinus rhythm rates 60-70
== END 2025-04-18 23:59 | disposition home or self-care (01) ==
LOC: CARDOPNVT 14:24
PROVIDERS: PCP Family Medicine; Visit Provider Internal Medicine Cardiovascular Disease
DX: R55 Syncope and collapse (principal); I49.3 Ventricular premature depolarization; I49.1 Atrial premature depolarization
CPT/HCPCS: 93227; 93225; 93226